=== PATIENT | female | born 1985 | race Caucasian/White ===

== ENCOUNTER 2016-05-23 20:30 | Inpatient (IN) | payer BC ==
[~2016-05-23] VITALS: Ht 165.1 cm; Wt 64.0 kg
[~2016-05-23 20:30] MED LIST: PRENATAL TABLE1 EAC3 PO; ZANTAC150 MG PO
[2016-05-23 21:35] VITALS: BP 126/86
[2016-05-23 22:12] VITALS: BP 132/77
[2016-05-23 22:13] LABS: EOSINOPHIL (%) 0.1 % (0-5); HEMATOCRIT 38.2 % (36.0-46.0); IMMATURE GRANULOCYTE (%) 0.2 % (0.0-0.7); LYMPHOCYTE COUNT 1.1 K/uL (1.0-2.8); MCH 30.5 PG (29.0-34.0); MCHC 34.6 G/DL (30.0-36.0); MCV 88.2 FL (83-99); MONOCYTE (%) 5.4 % (3-12); MONOCYTE COUNT 0.9 K/uL (0-0.8); NEUTROPHIL (%) 87.3 % (45-76); NEUTROPHIL COUNT 14.5 K/uL (1.8-6.4); PLATELET COUNT 223 K/uL (156-360); RBC DIS.WIDTH-CV 13.6 % (11.8-14.6); RBC DIS.WIDTH-SD 43.6 % (39-53); RED BLOOD COUNT 4.33 M/uL (3.80-5.20); WHITE BLOOD COUNT 16.6 K/uL (4.1-10.2)
[2016-05-23 23:21] VITALS: BP 131/88
[2016-05-24] VITALS (27 sets, daily range): BP systolic 0–155; BP diastolic 0–107
[2016-05-24] MEDS ORDERED: IBUPROFEN800 MG PO (11:41)
[2016-05-25 07:22] VITALS: BP 111/65
[2016-05-25 15:22] VITALS: BP 121/67
[2016-05-25 23:37] VITALS: BP 126/78
[2016-05-26 08:17] VITALS: BP 127/77
== END 2016-05-26 13:59 | disposition home or self-care (01) | DRG 775 ==
LOC: LDRP-OP → 2WEST 20:31 → LDRP-OP 06-28 12:13
PROVIDERS: Obstetrics & Gynecology
DX: O70.1 Second degree perineal laceration during delivery (principal); O36.0931 Maternal care for other rhesus isoimmunization, third trimester, fetus 1; O99.62 Diseases of the digestive system complicating childbirth; Z37.0 Single live birth; Z3A.38 38 weeks gestation of pregnancy; K21.9 Gastro-esophageal reflux disease without esophagitis; O26.893 Other specified pregnancy related conditions, third trimester; R01.1 Cardiac murmur, unspecified; M41.9 Scoliosis, unspecified
CPT/HCPCS: 81003; 83030; 85025; 86850; 86870; 86900; 86901; 86905; C1755; G0378; J0595; J2790; J3010; J7120; Q0169

== ENCOUNTER → 2017-08-29 | Outpatient (CLI) | payer BC ==
[~2017-08-29] VITALS: Ht 157.5 cm; Wt 64.0 kg
[~2017-08-29] MED LIST changes: +IBUPROFEN800 MG PO
[2017-08-29 11:50] VITALS: BP 131/60
== END | disposition home or self-care (01) ==
LOC: IVINF 11:30
DX: Z34.83 Encounter for supervision of other normal pregnancy, third trimester (principal); Z3A.28 28 weeks gestation of pregnancy; Z67.91 Unspecified blood type, Rh negative
CPT/HCPCS: 96372; J2790

== ENCOUNTER 2017-11-18 07:29 | Inpatient (IN) | payer BC ==
[2017-11-18] VITALS (21 sets, daily range): BP systolic 116–164; BP diastolic 55–96
[~2017-11-18] VITALS: Ht 157.5 cm; Wt 68.0 kg
[2017-11-18 09:22] LABS: BASOPHIL (%) 0.1 % (0-1); EOSINOPHIL (%) 0.7 % (0-5); EOSINOPHIL COUNT 0.1 K/uL (0-0.3); HEMATOCRIT 33.7 % (36.0-46.0); IMMATURE GRANULOCYTE (%) 0.3 % (0.0-0.7); LYMPHOCYTE (%) 14.9 % (15-42); LYMPHOCYTE COUNT 1.5 K/uL (1.0-2.8); MCH 26.5 PG (29.0-34.0); MCHC 32.6 G/DL (30.0-36.0); MCV 81.2 FL (83-99); MONOCYTE (%) 8.1 % (3-12); MONOCYTE COUNT 0.8 K/uL (0-0.8); NEUTROPHIL (%) 75.9 % (45-76); NEUTROPHIL COUNT 7.4 K/uL (1.8-6.4); PLATELET COUNT 217 K/uL (156-360); RBC DIS.WIDTH-CV 14.5 % (11.8-14.6); RBC DIS.WIDTH-SD 42.3 % (39-53); RED BLOOD COUNT 4.15 M/uL (3.80-5.20); WHITE BLOOD COUNT 9.7 K/uL (4.1-10.2)
[2017-11-18 10:35] LABS: AMPHETAMINE NEGATIVE (500 ng/mL); BARBITURATES NEGATIVE (200 ng/mL); BENZODIAZEPINES NEGATIVE (150 ng/mL); BUPRENORPHINE NEGATIVE (10 ng/mL); COCAINE NEGATIVE (150 ng/mL); METHADONE NEGATIVE (200 ng/mL); METHAMPHETAMINE NEGATIVE (500 ng/mL); OPIATES (MORPHINE) NEGATIVE (100 ng/mL); OXYCODONE NEGATIVE (100 ng/mL); PHENCYCLIDINE NEGATIVE (25 ng/mL); PROPOXYPHENE NEGATIVE (300 ng/mL); THC CANNABINOIDS NEGATIVE (50 ng/mL); TRICYCLIC ANTIDEPRESSANTS NEGATIVE (300 ng/mL)
[2017-11-18] MEDS ORDERED: IBUPROFEN800 MG PO (14:53)
[2017-11-19 07:31] VITALS: BP 141/78
[2017-11-19 15:01] VITALS: BP 136/86
[2017-11-19 22:57] VITALS: BP 125/82
[2017-11-20 04:25] VITALS: BP 129/80
== END 2017-11-20 15:12 | disposition home or self-care (01) | DRG 774 ==
LOC: LDRP-OP 07:29 → 2WEST 07:30 → LDRP-OP 13:18 → 2WEST 14:33 → LDRP-OP 12-18 10:54
PROVIDERS: Nurse Practitioner
PROC: 10907ZC Drainage of Amniotic Fluid, Therapeutic from Products of Conception, Via Natural or Artificial Opening (ICD-10-PCS; principal; 2017-11-18)
PROC: 10E0XZZ Delivery of Products of Conception, External Approach (ICD-10-PCS; principal; 2017-11-18)
PROC: 00HU33Z Insertion of Infusion Device into Spinal Canal, Percutaneous Approach (ICD-10-PCS; principal; 2017-11-18)
PROC: 3E0R3BZ Introduction of Anesthetic Agent into Spinal Canal, Percutaneous Approach (ICD-10-PCS; principal; 2017-11-18)
PROC: 3E033VJ Introduction of Other Hormone into Peripheral Vein, Percutaneous Approach (ICD-10-PCS; principal; 2017-11-18)
DX: O76 Abnormality in fetal heart rate and rhythm complicating labor and delivery (principal); O70.0 First degree perineal laceration during delivery; R01.1 Cardiac murmur, unspecified; O75.89 Other specified complications of labor and delivery; M41.9 Scoliosis, unspecified; O99.42 Diseases of the circulatory system complicating childbirth; Z3A.40 40 weeks gestation of pregnancy; Z37.0 Single live birth
CPT/HCPCS: 83030; 85025; 86850; 86900; 86901; C1755; J2790; J3010; J7120